=== PATIENT | male | born 1940 | race Caucasian/White ===

== ENCOUNTER 2020-05-26 07:05 | Day surgery (SDC) | payer MEDICARE, BC ==
[~2020-05-26 07:05] MED LIST: Lactated Ringers 1,000 ML IV SCH
[2020-05-26] MEDS ORDERED: Midazolam 1 MG/ML 2 ML SDV ONE (07:20)
[2020-05-26] MEDS ORDERED: fentaNYL 250 MCG/5 ML SDV ONE (07:20)
[2020-05-26] MEDS ORDERED: Propofol 200 MG/20 ML SDV ONE ×2 (07:20→09:56)
[2020-05-26] MEDS ORDERED: Dexamethasone 4 MG/ML 5 ML MDV ONE (07:20)
[2020-05-26] MEDS ORDERED: Succinylcholine/Sod PF 100 MG/5 ML SYRINGE IV ONE (07:20)
[2020-05-26] MEDS ORDERED: Rocuronium Bromide 50 MG/5 ML Syringe ONE (07:20)
[2020-05-26] MEDS ORDERED: Ondansetron 4 MG/2 ML SDV ONE (07:20)
--- NOTE | 2020-05-26 09:09 | PCM.PREANE ---
Preanesthetic Assessment - Anesthesia/Transfusion/Family Hx Anesthesia History: Prior Anesthesia Without Reaction Family History of Anesthesia Reaction: No Transfusion History: No Prior Transfusion(s) Intubation History: Unknown - Review of Systems General: No Symptoms Pulmonary: No Symptoms Cardiovascular: No Symptoms Gastrointestinal: No Symptoms Neurological: No Symptoms Other: Reports: None - Physical Assessment NPO Status Date: 05/25/20 Height: 5 ft 6 in Weight: 88.451 kg ASA Class: 2 Mental Status: Alert & Oriented x3 Airway Class: Mallampati = 2 Dentition: Reports: Normal Dentition ROM/Head Extension: Full Lungs: Clear to Auscultation, Normal Respiratory Effort Cardiovascular: Regular Rate, Regular Rhythm - Lab Values: Laboratory Last Values SARS-CoV-2 RNA (ÓSCAR) NEGATIVE (NEGATIVE) 05/26/20 07:17 - Allergies Allergies/Adverse Reactions: Allergies Allergy/AdvReac Type Severity Reaction Status Date / Time atorvastatin [From Lipitor] Allergy Muscle Verified 05/25/20 08:41 Aches - Blood Blood Available: No - Anesthesia Plan Pre-Op Medication Ordered: None - Acknowledgements Anesthesia Type Planned: General Anesthesia Pt an Appropriate Candidate for the Planned Anesthesia: Yes Alternatives and Risks of Anesthesia Discussed w Pt/Guardian: Yes Pt/Guardian Understands and Agrees with Anesthesia Plan: Yes Additional Comments: PMH: dm2, htn PLAN: ga/lma PreAnesthesia Questionnaire HEENT History: Reports: Cataract, Hard of Hearing, Other (See Below) Other HEENT History: uses reading glasses, 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), has lower permanent dental bridge Cardiovascular History: Reports: High Cholesterol, Hypertension Respiratory History: Reports: None Gastrointestinal History: Reports: GERD Genitourinary History: Reports: BPH Other Genitourinary History: hx bladder tumors, hx bladder cancer Musculoskeletal History: Reports: Fracture Other Musculoskeletal History: hx of fx leg as a child Neurological History: Reports: Concussion Psychiatric History: Reports: None Endocrine/Metabolic History: Reports: Diabetes, Type II, Obesity/BMI 30+ Hematologic History: Reports: None Immunologic History: Reports: None Oncologic (Cancer) History: Reports: Bladder, Squamous Cell Carcinoma Dermatologic History: Reports: None - Infectious Disease History Infectious Disease History: Reports: None - Past Surgical History Head Surgeries/Procedures: Reports: None HEENT Surgical History: Reports: Cataract Surgery Cardiovascular Surgical History: Reports: Other (See Below) Other Cardiovascular Surgeries/Procedures: has had 2 angiograms- no stents, last angiogram ' Respiratory Surgical History: Reports: None GI Surgical History: Reports: None Male Surgical History: Reports: TURBT-Transurethral Resection of Bladder Tumor Endocrine Surgical History: Reports: None Neurological Surgical History: Reports: None Musculoskeletal Surgical History: Reports: Arthroscopic Knee, Shoulder Surgery Other Musculoskeletal Surgeries/Procedures:: hx of right RTCR and left ACL Oncologic Surgical History: Reports: None Dermatological Surgical History: Reports: Skin Biopsy - SUBSTANCE USE Tobacco Use Status *Q: Former Tobacco User Tobacco Use Within Last Twelve Months: No - HOME MEDS Home Medications: Home Meds Aspirin [Adult Low Dose Aspirin EC] 81 mg PO DAILY 06/04/18 [History] Betamethasone Dipropionate [Diprosone 0.05% Crm] 1 dose TOP DAILY PRN 06/04/18 [History] Glimepiride [Amaryl] 2 mg PO DAILY 06/04/18 [History] Glucofit 1 tab PO BID 06/04/18 [History] Losartan Potassium 50 mg PO QAM 06/04/18 [History] Multivitamin [Multivitamins] 1 cap PO DAILY 06/04/18 [History] Pioglitazone HCl [Actos] 15 mg PO DAILY 06/04/18 [History] Rosuvastatin [Crestor] 10 mg PO DAILY 06/04/18 [History] Tamsulosin HCl 0.4 mg PO DAILY 06/04/18 [History] carvediloL [Carvedilol] 3.125 mg PO BID 06/04/18 [History] cycloSPORINE [Restasis Multidose] 1 drop EYEBOTH BID PRN 06/04/18 [History] metFORMIN HCl [Metformin HCl] 500 mg PO BID 06/04/18 [History] Omeprazole 1 tab PO DAILY 05/25/20 [History] - CURRENT (IN HOUSE) MEDS Current Meds: Current Medications Lactated Ringer's (Ringers, Lactated) 1,000 mls @ 125 mls/hr IV ASDIRECTED MATILDE Discontinued Medications Dexamethasone (Dexamethasone) Confirm Administered Dose 20 mg .ROUTE .STK-MED ONE Stop: 05/26/20 07:21 Fentanyl (Sublimaze) Confirm Administered Dose 250 mcg .ROUTE .STK-MED ONE Stop: 05/26/20 07:21 Lidocaine HCl (Xylocaine-Mpf 1%) Confirm Administered Dose 5 ml .ROUTE .STK-MED ONE Stop: 05/26/20 07:21 Midazolam HCl (Versed 1 Mg/Ml) Confirm Administered Dose 2 mg .ROUTE .STK-MED ONE Stop: 05/26/20 07:21 Ondansetron HCl (Zofran) Confirm Administered Dose 4 mg .ROUTE .STK-MED ONE Stop: 05/26/20 07:21 Propofol (Diprivan 20 Ml) Confirm Administered Dose 200 mg .ROUTE .STK-MED ONE Stop: 05/26/20 07:21 Rocuronium Erie (Rocuronium Erie) Confirm Administered Dose 50 mg .ROUTE .STK-MED ONE Stop: 05/26/20 07:21
[2020-05-26] MEDS ORDERED: ceFAZolin/Dextrose,Iso-Osmotic 2 GM/50 ML Duplex Bag IV ONE (09:13)
[2020-05-26] MEDS ORDERED: fentaNYL 100 MCG/2 ML SDV IVPUSH PRN (10:09)
[2020-05-26] MEDS ORDERED: Albuterol/Ipratropium 3.0-0.5 MG/3 ML Neb Soln NEB ONE (10:27)
[2020-05-26] MEDS ORDERED: Non-Formulary Medication 1 Each (Cyclosporine [Restasis Multidose] 1 DROP) EYEBOTH PRN (10:31)
[2020-05-26] MEDS ORDERED: BETAMETHASONE DIPROPIONATE TOP PRN (10:31)
--- NOTE | 2020-05-26 10:49 | PCM.POSTAN ---
POST ANESTHESIA ASSESSMENT - MENTAL STATUS Mental Status: Alert, Oriented - VITAL SIGNS Vital Signs: Last Vital Signs Temp 98.6 F 05/26/20 10:22 Pulse 98 05/26/20 10:41 Resp 13 05/26/20 10:41 BP 126/78 05/26/20 10:41 Pulse Ox 94 L 05/26/20 10:41 - RESPIRATORY Respiratory Status: Respiratory Rate WNL, Airway Patent, O2 Saturation Stable - CARDIOVASCULAR CV Status: Pulse Rate WNL, Blood Pressure Stable - GASTROINTESTINAL GI Status: No Symptoms - POST OP HYDRATION Hydration Status: Adequate & Stable
[2020-05-26] MEDS ORDERED: Carvedilol 3.125 MG Tab PO SCH (21:00)
[2020-05-26] MEDS ORDERED: [UNRECOGNIZED DRUG - OTHER] PO SCH (21:00)
[2020-05-26] MEDS ORDERED: metFORMIN 500 MG Tab PO SCH (21:00)
[2020-05-27] MEDS ORDERED: Non-Formulary Medication 1 Each (Multivitamin [Multivitamins] 1 CAP) PO SCH (09:00)
[2020-05-27] MEDS ORDERED: OMEPRAZOLE PO SCH (09:00)
[2020-05-27] MEDS ORDERED: Losartan 50 MG Tab PO SCH (09:00)
[2020-05-27] MEDS ORDERED: Pioglitazone 15 MG Tab PO SCH (09:00)
[2020-05-27] MEDS ORDERED: Rosuvastatin 10 MG Tab PO SCH (09:00)
[2020-05-27] MEDS ORDERED: Glimepiride 2 MG Tab PO SCH (09:00)
[2020-05-27] MEDS ORDERED: Tamsulosin 0.4 MG Cap.ER PO SCH (09:00)
--- NOTE | 2020-05-27 11:23 | OR ---
SURGEON: Steve Rooney M.D. DATE OF PROCEDURE: 05/26/2020 PREOPERATIVE DIAGNOSIS: History of bladder cancer with recurrent bladder tumor and positive cytology. POSTOPERATIVE DIAGNOSIS: History of bladder cancer with recurrent bladder tumor and positive cytology. OPERATION: Cystoscopy, resection of a small bladder tumor on the anterior wall, and fulguration of another small tumor on the posterior wall. DESCRIPTION OF PROCEDURE: The patient was given general anesthesia. He was placed in dorsal lithotomy position, prepped and draped in sterile drapes. The 26-Mongolian continuous-flow resectoscope was introduced in the bladder without difficulty. The bladder was inspected and the tumor on the anterior wall of the bladder was resected in its entirety. The base of that tumor was probably about 5 or 6 mm across. Another small tumor on the posterior wall was fulgurated. Once that done, the bleeding points were fulgurated and an 18-Mongolian Cardozo catheter was placed and connected to straight drainage. The patient tolerated the procedure well and was moved to recovery room in stable condition. ADDENDUM: The patient also had a prostate biopsy approximately a week ago and that showed adenocarcinoma, one side had 3+3, the other side had 3+4. My recommendation for treatment for him is radiation therapy. He has not had a bone scan yet. I suspect that will be negative. His PSA was 11. FAVIOLA / STEVE /[id number]
== END 2020-05-26 12:05 | disposition home or self-care (01) ==
LOC: MW.SDS 07:05
PROVIDERS: ATTEND Urology
DX: C67.3 Malignant neoplasm of anterior wall of bladder (principal); C67.4 Malignant neoplasm of posterior wall of bladder; E78.00 Pure hypercholesterolemia, unspecified; I10 Essential (primary) hypertension; E11.9 Type 2 diabetes mellitus without complications; E66.9 Obesity, unspecified; Z01.812 Encounter for preprocedural laboratory examination; Z20.828 Contact with and (suspected) exposure to other viral communicable diseases; Z88.8 Allergy status to other drugs, medicaments and biological substances; Z79.899 Other long term (current) drug therapy; Z87.891 Personal history of nicotine dependence; Z79.82 Long term (current) use of aspirin; Z79.84 Long term (current) use of oral hypoglycemic drugs; Z68.31 Body mass index [BMI] 31.0-31.9, adult
CPT/HCPCS: 52234; J0330; J0690; J1100; J2001; J2250; J2405; J2704; J3010; J7120; U0002; 00912